=== PATIENT | female | born 1995 | race Asian ===

== ENCOUNTER 2017-06-13 09:19 | Emergency (ER) | payer BC ==
[~2017-06-13] VITALS: Ht 154.9 cm; Wt 54.4 kg
[~2017-06-13 09:19] MED LIST: NKM
[2017-06-13 09:27] VITALS: BP 121/78
[2017-06-13] MEDS ORDERED: Tylenol #3 tab (300mg/30mg) PO ONE (09:30)
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
--- NOTE | 2017-06-13 10:50 | Diagnostic Imaging Report ---
Indication: Headache Technique: Contiguous 5 mm thick transaxial imaging of the head obtained in a Siem[employer] Sensation [address] scanner. Soft tissue and bone windows generated. Total Dose length Product (DLP): [address] Dose Index Volume (CTDIvol): 70.38, 0.15 mGy Comparison: none Findings: The size and configuration of the cortical sulci, basal cisterns, and ventricles are within normal limits for age. There is no mass effect, midline shift, or edema identified. There is no evidence of acute hemorrhage or abnormal intra-axial or extra-axial fluid collections. The bones and soft tissues are unremarkable. Impression: No mass effect, edema or acute bleed. The CT scanner at [facility] is accredited by the [employer] and the scans are performed using dose optimization techniques as appropriate to a performed exam including Automatic Exposure control.
--- NOTE | 2017-06-13 10:51 | Diagnostic Imaging Report ---
Indication: Neck pain. Technique: Continuous helical imaging of the cervical spine was obtained transaxially from the skull base to the upper thoracic spine. 2-D coronal and sagittal reformatted images were obtained. Total Dose length Product (DLP): [address] Dose Index Volume (CTDIvol): 13.3, 0.25 mGy Comparison: None Findings: There is no evidence of an acute fracture or malalignment. Atlantoaxial alignment appears normal. Height and configuration of the vertebral bodies and intervertebral discs are within normal limits. Uncovertebral joints and facets are unremarkable. There is no soft tissue swelling. Impression: Negative cervical spine CT The CT scanner at [facility] is accredited by the [employer] and the scans are performed using dose optimization techniques as appropriate to a performed exam including Automatic Exposure control.
[2017-06-13] MEDS ORDERED: CYCLOBENZAPRINE10 MG ORAL (11:04)
[2017-06-13] MEDS ORDERED: TYLENOL EXTRA500 MG ORAL (11:04)
[2017-06-13 11:18] VITALS: BP 121/78
== END 2017-06-13 11:18 | disposition home or self-care (01) ==
LOC: EDBD 09:19 → EMR 10:33
DX: S09.90XA Unspecified injury of head, initial encounter (principal); V43.52XA Car driver injured in collision with other type car in traffic accident, initial encounter; Y92.410 Unspecified street and highway as the place of occurrence of the external cause
CPT/HCPCS: 70450; 72125; 99284